=== PATIENT | female | born 1995 | race Caucasian/White ===

== ENCOUNTER 2017-11-09 11:41 | Emergency (ER) | payer OTHER ==
[~2017-11-09] VITALS: Ht 157.5 cm; Wt 70.0 kg
[2017-11-09 13:03] VITALS: BP 121/72
== END 2017-11-09 16:24 | disposition home or self-care (01) ==
LOC: ER 13:04
DX: M25.522 Pain in left elbow (principal); R20.0 Anesthesia of skin
CPT/HCPCS: 99282